=== PATIENT | female | born 1980 ===

== ENCOUNTER 2018-11-11 05:12 | Inpatient (IN) | payer OTHER ==
[2018-11-11] MEDS ORDERED: ACETAMINOPHEN 500 MG TAB PO ONE (06:15)
[2018-11-11 08:15] LABS: PLATELET COUNT 256 10^3/uL (150-400)
[2018-11-11] MEDS ORDERED: LIDOCAINE 1% 300 MG/30 ML SDV ONE (09:21)
[2018-11-11] MEDS ORDERED: TERBUTALINE SULFATE 1 MG/ML VIAL ONE (09:21)
[2018-11-11] MEDS ORDERED: AMMONIA AROMATIC 1 EACH AMP IH ONE (09:21)
[2018-11-11] MEDS ORDERED: OLIVE OIL 118 ML BTL ONE (09:21)
[2018-11-11] MEDS ORDERED: OXYTOCIN 10 UNIT/ML VIAL ONE (09:22)
[2018-11-11] MEDS ORDERED: MISOPROSTOL 200 MCG TAB ONE (09:22)
--- NOTE | 2018-11-11 13:11 | OBPROG ---
Labor Progress Note Assessment/Plan: Assessment: IUP at 39 wks borderline b/p - preeclampsia without severe features ( now with pushing - b/p 147/90 and greater than 4 hrs from last 146/92 with elev p:c) pushing Plan: expect , will watch b/p carefully 11/11/18 13:08 Subjective/Intrapartum Course: 11/11/18 13:10 Pt pushing - tired of back pain, no nausea or headache Objective: 11/11/18 08:00 11/11/18 06:37 Uric Acid 4.1 mg/dL (2.5-6.8) 11/11/18 06:37 Total Bilirubin 0.3 mg/dL (0.1-1.4) 11/11/18 06:37 Conjugated Bilirubin 0.2 mg/dL (0.0-0.5) 11/11/18 06:37 Unconjugated Bilirubin 0.1 mg/dL (0.0-1.1) 11/11/18 06:37 AST 24 IU/L (14-46) 11/11/18 06:37 ALT 17 IU/L (9-52) 11/11/18 06:37 Lactate Dehydrogenase 432 IU/L (313-618) 11/11/18 06:37 - SVE Dilation (cm): 10 Effacement (%): 100 Station: +2 Membranes: AROM Amniotic Fluid Color: Clear (brownish - ?light mec vs old blood) Dilation Complete Date: 11/11/18 Dilation Complete Time: 12:22 - Contraction Pattern Assessment Current Contraction Pattern: Regular (q 2 min) - FHR Assessment Pérez FHR (bpm): 130 FHR Pattern Variability: Moderate FHR Category: 2 - Procedures Non-surgical Procedures: Amniotomy (at 13:06, small amt of fluid) Oxytocin Orders Assessment - Pre-Induction/Augmentation Assessment Gestational Age: 39 week(s) and 0 day(s) ICD10 Worksheet Patient Problems: Problems Problem Status Onset Normal labor Acute
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
[2018-11-11] MEDS ORDERED: IBUPROFEN 600 MG TAB PO ONE ×2 (14:15→14:16)
[2018-11-11] MEDS ORDERED: DOCUSATE SODIUM 100 MG CAP PO PRN (14:52)
--- NOTE | 2018-11-11 14:59 | OBDEL ---
Info Type: Vaginal Presentation at Delivery: Vertex L&D Analgesia/Anesthesia Type: IV Narcotics (75 mcg IV for repair), Nitrous GBS+: No Intrapartum Medications: Discontinued Medications Generic Name Dose Route Start Last Admin Trade Name Olena PRN Reason Stop Dose Admin Acetaminophen 1,000 mg 11/11/18 06:15 11/11/18 06:24 Tylenol PO 11/11/18 06:16 1,000 mg ONCE ONE Administration Ibuprofen 600 mg 11/11/18 14:15 11/11/18 14:19 Motrin PO 11/11/18 14:16 600 mg ONCE ONE Administration - Hospital Course Intrapartum: 11/11/18 13:10 Pt pushing - tired of back pain, no nausea or headache Indications for Delivery: Spontaneous Labor Vaginal Delivery - Delivery Provider Delivery Physician/CNM: Loida Zheng - Labor and Delivery Onset of Contractions Date: 11/11/18 Onset of Contractions Time: 03:00 Onset of Contractions Type: Spontaneous Rupture of Membranes Date: 11/11/18 Rupture of Membranes Time: 13:06 Rupture of Membranes Type: Artificial Amniotic Fluid Color: Clear (brownish - ?light mec vs old blood) Dilation Complete Date: 11/11/18 Dilation Complete Time: 12:22 Placenta Delivery Date: 11/11/18 Placenta Delivery Time: 13:49 Total Hours of Labor: 10 Non-surgical Procedures: Amniotomy (at 13:06, small amt of fluid) Laceration: 1st Degree (shearing tear of left labia and right inner vagina), 2nd Degree (midline), Other (Specify) (rectal exam reveals no concern for mucosa or sphincter compromise) Repair: 3-0, Vicryl Vaginal Sponge Count Correct: Yes Vaginal Needle Count Correct: Yes Vaginal Sweep Performed: Yes EBL: 400 Delivery Comment: pt with back pain with labor and pushing -- did not want to change pushing position of hands/knees for delivery. Baby born controlled in hands/knees then delayed cord clamp and baby passed up through legs and mom held and switched position to be on her back. - Medications Labor Augmentation/Induction Methods Used: None [place] Data ANITA: 11/18/18 Gestational Age: 39 week(s) and 0 day(s) Pérez Delivery Date: 11/11/18 Delivery Time: 13:37 Sex of Infant: Female (Gissel) Score (1 Min): 8 Score (5 Min): 9 ICD10 Worksheet Patient Problems: Problems Problem Status Onset (spontaneous vaginal delivery) Acute
[2018-11-11] MEDS: IBUPROFEN 600 MG TAB PO SCH (18:24)
[2018-11-11] MEDS: ACETAMINOPHEN 325 MG TAB PO SCH (20:38)
[2018-11-12] MEDS: IBUPROFEN 600 MG TAB PO SCH ×4 (00:11→20:24)
[2018-11-12] MEDS: ACETAMINOPHEN 325 MG TAB PO SCH ×4 (02:43→20:25)
--- NOTE | 2018-11-12 11:34 | OBPP ---
Progress Note Assessment/Plan: Assessment: ppd#1 s/p breast feeding borderline blood pressures - stable rh+/RI/GBS neg extensive perineal tear Plan: 11/12/18 11:33 11/12/18 11:34 Subjective/ Course: 11/12/18 11:35 patient is doing well but exhausted. bottom is very sore. using ice and tucks pads. discussed ibuprofen, tylenol, ambulating and oxycodone if needed. working on breast feeding. normal lochia. denies headache and changes in vision. Objective: 11/12/18 03:30 11/11/18 06:37 Uric Acid 4.1 mg/dL (2.5-6.8) 11/11/18 06:37 Total Bilirubin 0.3 mg/dL (0.1-1.4) 11/11/18 06:37 Conjugated Bilirubin 0.2 mg/dL (0.0-0.5) 11/11/18 06:37 Unconjugated Bilirubin 0.1 mg/dL (0.0-1.1) 11/11/18 06:37 AST 24 IU/L (14-46) 11/11/18 06:37 ALT 17 IU/L (9-52) 11/11/18 06:37 Lactate Dehydrogenase 432 IU/L (313-618) 11/11/18 06:37 Temp Pulse Resp BP Pulse Ox 36.4 C 75 16 110/70 96 11/12/18 08:12 11/12/18 08:12 11/12/18 08:12 11/12/18 08:12 11/11/18 20:06 Physical Exam - Physical Exam Neck: non-tender, full range of motion Respiratory: chest non-tender, lungs clear, normal breath sounds Cardiac/Chest: normal peripheral pulses, regular rate, rhythm Abdomen: normal bowel sounds, non-tender, other (fundus firm adn non tender) Extremities: normal range of motion, non-tender, normal inspection, normal capillary refill Skin: normal color, warm/dry Neuro/Psych: no motor/sensory deficits, alert, normal mood/affect, oriented x 3
[2018-11-12] MEDS ORDERED: EPSOM SALT 454 GM TP ONE ×3 (12:02→20:20)
[2018-11-13] MEDS: ACETAMINOPHEN 325 MG TAB PO SCH ×4 (02:42→18:04)
[2018-11-13] MEDS: IBUPROFEN 600 MG TAB PO SCH ×4 (02:42→18:03)
[2018-11-13 09:22] VITALS: BP 131/85
--- NOTE | 2018-11-13 11:18 | OBPP ---
Progress Note Assessment/Plan: Assessment: 38 y/o PPD #2 s/p with significant PP bleeding secondary perineal and sulcus laceration, breast feeding issues and poor milk supply Plan: I feel she and the baby would benefit from one more day and night in the hospital for iron therapy, support. Insurance company said they could not give a decision on extended stay for 48-72 hours. We will d/c home late this evening instead. 11/13/18 11:19 Subjective/ Course: 11/12/18 11:35 patient is doing well but exhausted. bottom is very sore. using ice and tucks pads. discussed ibuprofen, tylenol, ambulating and oxycodone if needed. working on breast feeding. normal lochia. denies headache and changes in vision. 11/13/18 11:06 Pt is having a difficult time today. She continues to have significant perineal discomfort and is unable to sit. She is taking Ibuprofen and Tylenol around the clock and had good comfort with a sitz bath yesterday and tomorrow. She lochia is moderate. Breast feeding is difficult. Baby has difficulties with latch and she has significant nipple soreness with cracked left nipple. She has min milk production and just started trying to pump as well. She is tearful and her emotions up and down mostly because of significant perineal pain and the breast feeding issues. We discussed staying one more day and night for support. She needs to start iron therapy, sitz baths and pumping. Her baby has also had a 9% weight loss and may need to begin supplementation. Objective: 11/12/18 03:30 11/11/18 06:37 Uric Acid 4.1 mg/dL (2.5-6.8) 11/11/18 06:37 Total Bilirubin 0.3 mg/dL (0.1-1.4) 11/11/18 06:37 Conjugated Bilirubin 0.2 mg/dL (0.0-0.5) 11/11/18 06:37 Unconjugated Bilirubin 0.1 mg/dL (0.0-1.1) 11/11/18 06:37 AST 24 IU/L (14-46) 11/11/18 06:37 ALT 17 IU/L (9-52) 11/11/18 06:37 Lactate Dehydrogenase 432 IU/L (313-618) 11/11/18 06:37 Temp Pulse Resp BP Pulse Ox 36.6 C 71 17 131/85 H 94 11/13/18 08:00 11/13/18 08:00 11/13/18 08:00 11/13/18 08:00 11/13/18 08:00 Uterine Position/Fundal Height: Umbilicus -2 Uterine Tone: Firm Physical Exam - Physical Exam General Appearance: WD/WN, alert, no apparent distress Neck: non-tender, full range of motion, supple Respiratory: chest non-tender, lungs clear, normal breath sounds Cardiac/Chest: regular rate, rhythm Abdomen: normal bowel sounds Extremities: swelling (tr), Елена's sign (neg)
--- NOTE | 2018-11-13 11:28 | OBGCSDC ---
General Delivery Information - General Info : 2 Para: 1 Abortions: 1 Type: Vaginal L&D Analgesia/Anesthesia Type: Local Admission Date: 11/12/18 Labs: Hct 30.1 % (38.0-47.0) L 11/12/18 03:30 - Hospital Course Intrapartum: 11/11/18 13:10 Pt pushing - tired of back pain, no nausea or headache : 11/12/18 11:35 patient is doing well but exhausted. bottom is very sore. using ice and tucks pads. discussed ibuprofen, tylenol, ambulating and oxycodone if needed. working on breast feeding. normal lochia. denies headache and changes in vision. 11/13/18 11:06 Pt is having a difficult time today. She continues to have significant perineal discomfort and is unable to sit. She is taking Ibuprofen and Tylenol around the clock and had good comfort with a sitz bath yesterday and tomorrow. She lochia is moderate. Breast feeding is difficult. Baby has difficulties with latch and she has significant nipple soreness with cracked left nipple. She has min milk production and just started trying to pump as well. She is tearful and her emotions up and down mostly because of significant perineal pain and the breast feeding issues. We discussed staying one more day and night for support. She needs to start iron therapy, sitz baths and pumping. Her baby has also had a 9% weight loss and may need to begin supplementation. Vaginal - Delivery Provider Delivery Physician/CNM: Loida Zheng - Diagnosis Labor: Spontaneous Rupture of Membranes Type: Artificial Amniotic Fluid Color: Clear (brownish - ?light mec vs old blood) Laceration: 1st Degree (shearing tear of left labia and right inner vagina), 2nd Degree (midline), Other (Specify) (rectal exam reveals no concern for mucosa or sphincter compromise) Repair: 3-0, Vicryl - Procedures Non-surgical Procedures: Amniotomy (at 13:06, small amt of fluid) - Delivery Non-surgical Procedures: Amniotomy (at 13:06, small amt of fluid) EBL: 400 [place] Data ANITA: 11/18/18 Gestational Age: 39 week(s) and 2 day(s) Pérez Delivery Date: 11/11/18 Delivery Time: 13:37 Sex of Infant: Female [place] Weight (gm): 3450 kg Score (1 Min): 8 Score (5 Min): 9 Discharge Information - Discharge Information Prescriptions: oxyCODONE IR [Oxycodone Ir (*)] 5 mg PO Q4HRS PRN #14 tab PRN Reason: Pain, Severe Able To Take Po Ibuprofen [Motrin (*)] 600 mg PO Q6HRS #30 tab Iron/Vit C/Docusate [Michelle-Sequels 65 mg (*)] 1 each PO BID #60 tab.er Condition: Good Instruction/Follow Up: Two Weeks, Four Weeks, Six Weeks
[2018-11-13] MEDS: oxyCODONE IR 5 MG TAB PO PRN ×2 (11:30→17:17)
--- NOTE | 2018-11-13 13:39 | ASMTCMCOM ---
CM Note CM Note Notes: CM requested to visit with MOC. Upon entering the room, MOC is actively and father nearby. Approached MOC and FOC about resources to help with challenges of caring for . Encouraged liberal access to search engine optimization consultant, possibility of utilizing out patient speech if latching still problematic. Resources provided for Depression. CM available should other needs arise. Plan: Dc to home with family support. Date Signed: 11/13/2018 01:38 PM Electronically Signed By:Toyin Catalan RN
[2018-11-13] MEDS ORDERED: FERRO-SEQUELS 65 MG TAB.ER PO ONE (17:32)
[2018-11-13] MEDS ORDERED: FERRO-SEQUELS 65 MG TAB.ER PO SCH (21:00)
== END 2018-11-13 18:30 | disposition home or self-care (01) | DRG 807 ==
LOC: FLD 05:12 → FOB 16:19 → OBSVTOIN 11-12 12:00
PROVIDERS: ADMIT Obstetrics & Gynecology; ATTEND Obstetrics & Gynecology
DX: O70.1 Second degree perineal laceration during delivery (principal); Z37.0 Single live birth; Z3A.39 39 weeks gestation of pregnancy
CPT/HCPCS: J2590; J3105

== ENCOUNTER → 2018-11-17 | Outpatient (CLI) | payer OTHER | LOC: FIMAGING 10:40 | PROVIDERS: ATTEND Obstetrics & Gynecology | DX: O92.4 Hypogalactia (principal) | CPT/HCPCS: G0463 ==